=== PATIENT | female | born 1960 | race Caucasian/White ===

== ENCOUNTER 2017-07-22 05:31 | Inpatient (IN) | payer OTHER ==
[2017-07-18 13:25] LABS: BASOPHILS 0.3 %; BASOPHILS ABSOLUTE 0.02 10/3/uL (0.0-0.16); EOSINOPHILS ABSOLUTE 0.06 10/3/uL (0.0-0.53); IMMATURE GRANULOCYTES 0.2 %; IMMATURE GRANULOCYTES ABSOLUTE 0.01 10/3/uL (0.0-0.11); LYMPHOCYTES 40.7 %; LYMPHOCYTES ABSOLUTE 2.41 10/3/uL (0.67-4.30); MEAN CORPUS HGB CONC 34.3 g/dL (32.0-36.0); MEAN CORPUSCULAR HEMOGLOB 33.7 pg (26.0-34.0); MEAN CORPUSCULAR VOLUME 98.3 fL (80-100); MEAN PLATELET VOLUME 9.8 fL (9.2-13.0); MONOCYTES 4.7 %; MONOCYTES ABSOLUTE 0.28 10/3/uL (0.21-1.20); NEUTROPHILS 53.1 %; NEUTROPHILS ABSOLUTE 3.14 10/3/uL (2.02-8.40); PLATELET COUNT 240 10/3/uL (150-400); RBC DISTRIBUTION WIDTH 13.4 % (12.0-16.0); RED CELL COUNT 3.56 10/6/uL (4.0-5.6); WHITE BLOOD CELLS 5.9 10/3/uL (4.5-10.5)
[2017-07-18 13:28] LABS: MANUAL DIFF NO %
[2017-07-18 13:32] LABS: PROTIME (NOT ORD) 12.9 SEC (12.0-14.5)
[2017-07-18 13:33] LABS: PARTIAL THROMBO TIME 28.9 SEC (22.5-37.2)
[2017-07-18 13:40] LABS: A/G RATIO 1.3 (0.7-1.9); ALBUMIN 4.4 G/DL (3.5-5.0); ALKALINE PHOSPHATASE 77 U/L (45-117); BUN (BLOOD UREA NITROGEN) 16 MG/DL (6-23); CHLORIDE, SERUM 104 MMOL/L (96-112); CO2 (CARBON DIOXIDE) 28 MMOL/L (24-34); CREATININE 0.78 MG/DL (0.55-1.02); GFR AFRICAN AMERICAN 96 ML/MIN (>=60); GFR NON AFRICAN AMERICAN 83 ML/MIN (>=60); GLOBULIN 3.4 G/DL (2.5-4.1); GLUCOSE, SERUM 87 MG/DL (60-99); POTASSIUM, SERUM 4.3 MMOL/L (3.5-5.3); SGOT(AST) 13 U/L (5-40); SGPT(ALT) 18 U/L (5-65); SODIUM, SERUM 141 MMOL/L (135-148); TOTAL BILIRUBIN 0.4 MG/DL (0-1.2); TOTAL PROTEIN 7.8 G/DL (6.0-8.5)
[~2017-07-22] VITALS: Ht 170.2 cm; Wt 48.3 kg
--- NOTE | ~2017-07-22 | PREOPHP ---
PreOp History and Physical [address] [place]. [address] NAME: JOSEPHINE ROJAS : 56 STATUS : PRE IN PAT#: [id number] AGE: 57 ADM/REG DATE : MR#: [id number] REPORT SERV DATE: 07/21/17 DICTATED BY: REESE MEDINA III DATE: 07/15/17 REPORT STATUS : Draft TRANSCRIBED BY: MODL DATE: 07/15/17 HISTORY OF PRESENT ILLNESS: This 57-year-old female comes to the operating room for Whipple procedure or pancreaticoduodenectomy, for biopsy proven cancer of the head of the pancreas. The patient complains of a one-month history of severe abdominal pain. The pain is primarily in the epigastric area and migrated through to the back. The pain has been associated with nausea and anorexia. The patient recently had an ultrasound, which showed a mass in the head of the pancreas. EUS was performed showing a mass in the head of the pancreas. Biopsy confirmed this to be adenocarcinoma. There was no evidence for metastatic disease on EUS. The patient comes to the operating room now for pancreaticoduodenectomy or Whipple procedure. PAST MEDICAL HISTORY: Essentially unremarkable. MEDICATIONS: Omeprazole and tramadol. PAST SURGICAL HISTORY: None. FAMILY HISTORY: Positive for colon cancer. SOCIAL HISTORY: No history of alcohol use. The patient has a history of regular tobacco abuse. ALLERGIES: NONE. MEDICATIONS: Omeprazole and tramadol. REVIEW OF SYSTEMS: The patient complains of fatigue and weight loss. Her 14-point review of systems is, otherwise, unremarkable. PHYSICAL EXAMINATION: GENERAL: This is a female, in no acute distress. She is alert and oriented x3. VITAL SIGNS: Blood pressure 123/80, pulse 104, and temp 98. HEENT: Unremarkable. Cranial nerves II through XII are normal. LUNGS: Clear. CARDIAC: Normal. ABDOMEN: Soft and nontender. LABORATORY DATA: Abdominal ultrasound shows a 3.3 cm mass in the pancreatic head with pancreatic ductal dilatation. EUS shows a similar finding with biopsy confirming this to be adenocarcinoma. On EUS, the portal vein is clear of involvement. ASSESSMENT: 1. A 57-year-old female with biopsy proven cancer of the head of the pancreas. 2. Tobacco abuse. PreOp History and Physical [address] [place]. [address] NAME: JOSEPHINE ROJAS : 56 STATUS : PRE IN PAT#: [id number] AGE: 57 ADM/REG DATE : MR#: [id number] REPORT SERV DATE: 07/21/17 DICTATED BY: REESE MEDINA III DATE: 07/15/17 REPORT STATUS : Draft TRANSCRIBED BY: IRISH DATE: 07/15/17 PLAN: The patient comes to the operating room now for Whipple procedure or pancreaticoduodenectomy. The option of nonsurgical treatment with palliative chemotherapy and radiation therapy have been offered to the patient, but declined. The fact that this is a major operation with high risk for morbidity and mortality has been explained. The procedure risks, benefits, and alternatives, including but not limited to the risk for bleeding, infection, enterotomy, injury to any abdominal structure, postop small bowel obstruction, ileus, incisional hernia, dehiscence, anastomotic leak involving any one or all three of the anastomoses including the biliary anastomosis, the gastric anastomosis, or pancreatic anastomosis, pancreatitis, pancreatic fistula formation, obstruction of any one or all three of the anastomoses including the biliary, pancreatic, or anastomosis, malfunction or leakage around the J-tube, gastroparesis or gastric outlet obstruction, prolonged ventilator dependency, and unforeseen complications including deep venous thrombosis, pulmonary embolus, myocardial infarction, stroke, pneumonia, and , have been fully and completely explained to the patient and family at length prior to surgery. The fact that this is a major operation with high risk for morbidity and mortality has been explained. The risk of major morbidity requiring reoperation at least 20% has been explained as well as the risk of mortality of 5% to 10%. The fact that without surgery, this malignancy cannot be cured has been explained. The patient questions have been answered. She fully and completely understands the risks and agrees to surgery as planned. RHJ/IRISH Reese Medina III, M.D. / [id number] CC: Ernie Virk III, MD
--- NOTE | ~2017-07-22 | OP ---
Record Of Operation [facility] [address] [address] NAME: JOSEPHINE ROJAS : 56 STATUS : ADM IN PAT#: [id number] AGE: 57 ADM/REG DATE : 07/22/17 MR#: [id number] REPORT SERV DATE: 07/23/17 DICTATED BY: REESE MEDINA III DATE: 07/23/17 REPORT STATUS : Draft TRANSCRIBED BY: MODStephen DATE: 07/23/17 DATE OF PROCEDURE: 07/22/2017 ADDENDUM: It should be noted that the marking clips were placed along the positive margin of the portal vein. There was more tumor inferior to this. In fact, a large body of the tumor was slightly inferior to where these clips were placed. HENRI/IRISH Reese Medina III, M.D. / [id number] CC: Ernie Virk III
--- NOTE | ~2017-07-22 | OP ---
Record Of Operation [facility] [address] [place]. [address] NAME: JOSEPHINE ROJSA : 56 STATUS : ADM IN [facility]#: [id number] AGE: 57 ADM/REG DATE : 07/22/17 MR#: [id number] REPORT SERV DATE: 07/23/17 DICTATED BY: REESE MEDINA III DATE: 07/22/17 REPORT STATUS : Draft TRANSCRIBED BY: MODL DATE: 07/22/17 DATE OF PROCEDURE: 07/22/2017 PREOPERATIVE DIAGNOSIS: Biopsy-proven adenocarcinoma of the head of the pancreas. POSTOPERATIVE DIAGNOSIS: Biopsy-proven adenocarcinoma of the head of the pancreas with invasion into the supraduodenal portal vein. PROCEDURE: Laparotomy, cholecystectomy, biopsy of portal lymph node, mobilization of pancreas. ANESTHESIA: General with intubation. COMPLICATIONS: None. ESTIMATED BLOOD LOSS: 20 mL. SPECIMENS: Gallbladder with cystic lymph node and periportal lymph node. DRAINS: Landon-Stafford in abdominal cavity, Alexx in subcutaneous tissue. LAP AND SPONGE COUNT: Correct x3. BRIEF HISTORY: This 57-year-old female, presented with biopsy-proven invasive adenocarcinoma of the head of the pancreas. Her workup including CT scan and the EUS showed a fairly large mass in the head of the pancreas. This appeared to be resectable with no evidence of metastatic disease on preoperative imaging studies. It was felt that laparotomy was attempted. Whipple procedure was indicated. This procedure, the risks, benefits, and alternatives, including but not limited to the risk for bleeding, infection, enterotomy, injury to abdominal structure, common bile duct injury, bile leak, retained common bile stone, ileus, gastroparesis, gastric outlet obstruction, leakage of any one or all three of the anastomoses including the gastric, biliary, or pancreatic anastomosis, obstruction of any one or all three of the anastomosis including the biliary, gastric, or pancreatic anastomosis, pancreatic fistula formation, pancreatitis, and unforeseen complications including deep venous thrombosis, pulmonary embolus, myocardial infarction, stroke, pneumonia, and , were fully explained to the patient and family at length prior to surgery. The fact this was a major operation with risk for major morbidity and mortality has been explained. The expected length of recovery was explained. The risk of morbidity of at least 20%, requiring reoperation, as well as the risk of mortality about 5% was explained. The patient and family had questions which were answered. They fully understood the risks and agreed to surgery as planned. FINDINGS: The patient had a large mass along the superior aspect of the head of the pancreas. This mass was directly invading the supraduodenal portal vein. The invasion was along the lateral aspect of the portal vein and posteriorly. This involved about a 1 cm to 1.5 cm length of the portal vein which was not resectable. Considerable amount of time was Record Of Operation [address] [address] NAME: JOSEPHINE ROJAS : 56 STATUS : ADM IN PAT#: [id number] AGE: 57 ADM/REG DATE : 07/22/17 MR#: [id number] REPORT SERV DATE: 07/23/17 DICTATED BY: REESE MEDINA III DATE: 07/22/17 REPORT STATUS : Draft TRANSCRIBED BY: IRISH DATE: 07/22/17 spent, trying to dissect the tumor away from the portal vein, though we could not do so safely. It was my judgment that would not be safe to proceed safely with resection because of involvement of the portal vein. It was my judgment that reconstruction of portal vein would involve significant risks to the patient in terms of portal vein thrombosis and this was not indicated and would likely not change her outcome in terms of curative procedure. The patient's cystic duct lymph node and travis hepatis lymph nodes were negative on frozen section and there was no evidence for disease outside of the primary tumor in the portal region and no evidence for metastatic disease. Again, though the tumor clearly invaded the posterior supraduodenal portal vein, making the tumor unresectable. The area was marked with clips for postop radiation therapy. DESCRIPTION OF PROCEDURE: After being appropriately identified and after discussing the risks of surgery with the patient and family again in the preoperative area, the patient was taken to the operating room and placed in supine position on the operating room table. General anesthesia was administered and she was intubated without difficulty. A Xie catheter and NG tube were inserted. The abdomen was prepped and draped sterilely in the usual fashion. After an appropriate "time-out" per JCAHO standards, a right subcostal incision was made about 2 cm below the costal margin, continuing over the left subcostal region for about 2-3 cm beyond the midline. The incision was continued through the subcutaneous tissue. Hemostasis was controlled with cautery. The incision was continued through the fascia. The abdominal cavity was entered. The abdomen was explored. There was no evidence for carcinomatosis or peritoneal implants. The liver appeared to be normal. There was a large obvious mass involving the head of the pancreas. The patient's anatomy was somewhat unusual and the majority of the pancreas was superior to the lesser curve of the stomach. The tumor was along the superior border of the head of the pancreas. Using sharp dissection, Jony maneuver was performed by dividing the peritoneal reflection to the 2nd, 3rd portion of the duodenal, mobilized the duodenum medially as far as possible. The duodenum was mobilized well beyond the inferior vena cava. We dissected along the inferior border of the pancreas using sharp dissection and identified the superior mesenteric vein as it dove beneath the pancreas posteriorly. Using sharp dissection, we dissected along the superior border of the pancreas. There was a very large lymph node in the portal region which was resected. This was sent for frozen section and interpreted as being benign. We identified the portal vein in the suprapancreatic region. We were able to make a plane posterior to pancreas above the portal vein which was clear. The body of the pancreas was normal. The tumor involved primarily in the superior aspect of the pancreas near the common bile duct. This tumor was very large and very firm. It appeared to extend up to the common bile duct with the junction of the common bile duct with the cystic duct appeared to be clear and soft with no obvious tumor. The portal vein however was clearly adherent to the tumor. We elected to remove the gallbladder so as to better define the common bile duct. Using sharp dissection, gallbladder dissected from the liver in a retrograde fashion. The cystic artery and cystic duct were individually isolated, ligated, and divided. They were doubly ligated. There was a lymph node along the distal aspect of the cystic duct and therefore the gallbladder and the cystic duct with this lymph node was sent to pathology and it was interpreted as being benign. Record Of Operation [address] [address] NAME: JOSEPHINE ROJAS : 56 STATUS : ADM IN PAT#: [id number] AGE: 57 ADM/REG DATE : 07/22/17 MR#: [id number] REPORT SERV DATE: 07/23/17 DICTATED BY: REESE MEDINA III DATE: 07/22/17 REPORT STATUS : Draft TRANSCRIBED BY: MODL DATE: 07/22/17 Using sharp dissection, the common bile duct was dissected away from the portal vein. A vessel loop was placed around it. It should be noted vessel loop was also placed around the pancreas over the portal vein. Both of these structures were clearly dividable. However, the tumor appeared to invade the portal vein along the lateral wall of the portal vein and the posterior wall of the portal vein. We identified the gastroduodenal artery as it dissected beneath the duodenum. It was isolated, ligated, and divided. We identified clearly the common hepatic artery which was carefully dissected away and protected. In this way, we were able to fully and completely expose the portal vein in the portal region. Great care was taken to carefully dissect it along the medial border which was free. However, there was about 1.5 to perhaps 2 cm of the portal vein which was densely adherent to the tumor along the lateral wall. Using sharp dissection, we were able to free up the majority of the lateral wall of the portal vein from the tumor. However, the tumor was clearly invading the posterior wall of the portal vein. This was not able to be freed with a clear margin. At this time, considerable amount of effort and time was spent trying to decide whether to remove the tumor from the portal vein and whether this would be a value to the patient in terms of her long-term prognosis. A long segment again perhaps 1.5 cm to 2 cm of the portal vein was involved posteriorly. It was my judgment that would not be safe to proceed with attempting to remove or dissect the tumor from the portal vein in this region. It was my concern that this could result in life-threatening hemorrhage, in that it would not be possible to resect the tumor with clear margins, and therefore would not provide the patient with a curative resection. For this reason, the area was marked with clips for postop radiation therapy. The area was irrigated copiously with saline. Hemostasis was assured. A Landon-Stafford drain was brought through a separate stab wound and placed in the right upper quadrant. The fascia was closed with a running looped #1 PDS suture in two layers. The subcutaneous tissue was closed with a running 3-0 chromic suture over a Moira drain which was brought through the lateral aspect of the incision. The skin was closed with running subcuticular 4 0 Monocryl stitch. It should be noted we elected not to perform a gastric or biliary bypass as the patient had no evidence for biliary or gastric obstruction at this time. Dressings were applied. Anesthesia was reversed. The patient was taken to the recovery room in stable condition. She tolerated the procedure well. Family was informed results of surgery. The patient will remain in the hospital for postoperative care. HENRI/IRISH Reese Medina III, M.D. / [id number] CC: Ernie Virk III, MD
[~2017-07-22 05:31] MED LIST: ENDOCET1 TA1 PO; PRILO PO; ULTRAM50 PO
[2017-07-23 05:05] LABS: BASOPHILS 0 %; EOSINOPHILS 0.1 %; EOSINOPHILS ABSOLUTE 0.01 10/3/uL (0.0-0.53); HEMOGLOBIN 10.6 g/dL (12.0-16.0); IMMATURE GRANULOCYTES 0.1 %; IMMATURE GRANULOCYTES ABSOLUTE 0.01 10/3/uL (0.0-0.11); LYMPHOCYTES 20.1 %; LYMPHOCYTES ABSOLUTE 1.47 10/3/uL (0.67-4.30); MEAN CORPUS HGB CONC 34.3 g/dL (32.0-36.0); MEAN CORPUSCULAR HEMOGLOB 34.3 pg (26.0-34.0); MEAN PLATELET VOLUME 9.4 fL (9.2-13.0); MONOCYTES 7.1 %; MONOCYTES ABSOLUTE 0.52 10/3/uL (0.21-1.20); NEUTROPHILS 72.6 %; NEUTROPHILS ABSOLUTE 5.31 10/3/uL (2.02-8.40); PLATELET COUNT 181 10/3/uL (150-400); RBC DISTRIBUTION WIDTH 13.8 % (12.0-16.0); RED CELL COUNT 3.09 10/6/uL (4.0-5.6); WHITE BLOOD CELLS 7.3 10/3/uL (4.5-10.5)
[2017-07-23 05:06] LABS: HEMATOCRIT 30.9 % (36.0-48.0); MANUAL DIFF NO %
[2017-07-23 05:20] LABS: CALCIUM, SERUM 9.4 MG/DL (8.5-10.4); CHLORIDE, SERUM 106 MMOL/L (96-112); CO2 (CARBON DIOXIDE) 26 MMOL/L (24-34); CREATININE 0.84 MG/DL (0.55-1.02); GFR AFRICAN AMERICAN 88 ML/MIN (>=60); GFR NON AFRICAN AMERICAN 76 ML/MIN (>=60); POTASSIUM, SERUM 4.9 MMOL/L (3.5-5.3); SGOT(AST) 818 U/L (5-40); SGPT(ALT) 599 U/L (5-65); SODIUM, SERUM 139 MMOL/L (135-148); TOTAL PROTEIN 6.4 G/DL (6.0-8.5)
[2017-07-23 05:24] LABS: ALBUMIN 3.2 G/DL (3.5-5.0); ALKALINE PHOSPHATASE 95 U/L (45-117); BUN (BLOOD UREA NITROGEN) 12 MG/DL (6-23); GLOBULIN 3.2 G/DL (2.5-4.1); GLUCOSE, SERUM 129 MG/DL (60-99); TOTAL BILIRUBIN 1.3 MG/DL (0-1.2)
[2017-07-24 04:40] LABS: BASOPHILS 0.1 %; BASOPHILS ABSOLUTE 0.01 10/3/uL (0.0-0.16); EOSINOPHILS 1.4 %; EOSINOPHILS ABSOLUTE 0.11 10/3/uL (0.0-0.53); HEMATOCRIT 29.2 % (36.0-48.0); HEMOGLOBIN 9.7 g/dL (12.0-16.0); IMMATURE GRANULOCYTES 0.2 %; IMMATURE GRANULOCYTES ABSOLUTE 0.02 10/3/uL (0.0-0.11); LYMPHOCYTES 18.8 %; LYMPHOCYTES ABSOLUTE 1.51 10/3/uL (0.67-4.30); MEAN CORPUS HGB CONC 33.2 g/dL (32.0-36.0); MEAN CORPUSCULAR HEMOGLOB 33.4 pg (26.0-34.0); MEAN CORPUSCULAR VOLUME 100.7 fL (80-100); MEAN PLATELET VOLUME 9.7 fL (9.2-13.0); MONOCYTES 7.7 %; MONOCYTES ABSOLUTE 0.62 10/3/uL (0.21-1.20); NEUTROPHILS 71.8 %; NEUTROPHILS ABSOLUTE 5.76 10/3/uL (2.02-8.40); PLATELET COUNT 165 10/3/uL (150-400); RBC DISTRIBUTION WIDTH 13.7 % (12.0-16.0)
[2017-07-24 04:41] LABS: MANUAL DIFF NO %
[2017-07-24 04:58] LABS: CA-19-9 11.8 U/ML (< 37.0); CALCIUM, SERUM 9.4 MG/DL (8.5-10.4); CHLORIDE, SERUM 107 MMOL/L (96-112); CO2 (CARBON DIOXIDE) 26 MMOL/L (24-34); CREATININE 0.58 MG/DL (0.55-1.02); GFR AFRICAN AMERICAN 117 ML/MIN (>=60); GFR NON AFRICAN AMERICAN 101 ML/MIN (>=60); POTASSIUM, SERUM 4.8 MMOL/L (3.5-5.3); SODIUM, SERUM 138 MMOL/L (135-148)
[2017-07-24 04:59] LABS: BUN (BLOOD UREA NITROGEN) 7 MG/DL (6-23); GLUCOSE, SERUM 103 MG/DL (60-99)
[2017-07-25 05:21] LABS: BASOPHILS 0.1 %; BASOPHILS ABSOLUTE 0.01 10/3/uL (0.0-0.16); EOSINOPHILS 2.1 %; EOSINOPHILS ABSOLUTE 0.16 10/3/uL (0.0-0.53); HEMATOCRIT 30.7 % (36.0-48.0); HEMOGLOBIN 10.3 g/dL (12.0-16.0); IMMATURE GRANULOCYTES 0.1 %; IMMATURE GRANULOCYTES ABSOLUTE 0.01 10/3/uL (0.0-0.11); LYMPHOCYTES 23.6 %; LYMPHOCYTES ABSOLUTE 1.79 10/3/uL (0.67-4.30); MANUAL DIFF NO %; MEAN CORPUS HGB CONC 33.6 g/dL (32.0-36.0); MEAN CORPUSCULAR HEMOGLOB 33.7 pg (26.0-34.0); MEAN CORPUSCULAR VOLUME 100.3 fL (80-100); MEAN PLATELET VOLUME 9.5 fL (9.2-13.0); MONOCYTES 7.8 %; MONOCYTES ABSOLUTE 0.59 10/3/uL (0.21-1.20); NEUTROPHILS 66.3 %; NEUTROPHILS ABSOLUTE 5.04 10/3/uL (2.02-8.40); PLATELET COUNT 190 10/3/uL (150-400); RBC DISTRIBUTION WIDTH 13.7 % (12.0-16.0); RED CELL COUNT 3.06 10/6/uL (4.0-5.6); WHITE BLOOD CELLS 7.6 10/3/uL (4.5-10.5)
[2017-07-25 05:26] LABS: BUN (BLOOD UREA NITROGEN) 9 MG/DL (6-23); CALCIUM, SERUM 9.4 MG/DL (8.5-10.4); CHLORIDE, SERUM 101 MMOL/L (96-112); CO2 (CARBON DIOXIDE) 30 MMOL/L (24-34); CREATININE 0.62 MG/DL (0.55-1.02); GFR AFRICAN AMERICAN 114 ML/MIN (>=60); GFR NON AFRICAN AMERICAN 99 ML/MIN (>=60); GLUCOSE, SERUM 101 MG/DL (60-99); POTASSIUM, SERUM 4.7 MMOL/L (3.5-5.3); SODIUM, SERUM 136 MMOL/L (135-148)
== END 2017-07-25 16:20 | disposition home or self-care (01) | DRG 415 ==
LOC: ENRESERVTM → ENRESERV → ENRESERVDT → SDC/OF 05:31 → 5SO 05:31
PROVIDERS: Surgery
PROC: 0FT40ZZ Resection of Gallbladder, Open Approach (ICD-10-PCS; principal; 2017-07-22 07:45)
PROC: 07BB0ZX Excision of Mesenteric Lymphatic, Open Approach, Diagnostic (ICD-10-PCS; 2017-07-22 07:45)
DX: C25.0 Malignant neoplasm of head of pancreas (principal); Z68.1 Body mass index [BMI] 19.9 or less, adult; E44.1 Mild protein-calorie malnutrition; K21.9 Gastro-esophageal reflux disease without esophagitis; F17.210 Nicotine dependence, cigarettes, uncomplicated; M19.90 Unspecified osteoarthritis, unspecified site
CPT/HCPCS: 36415; 71010; 71020; 80048; 80053; 82962; 85025; 85610; 85730; 86301; 86850; 86900; 86901; 88304; 88305; 88331; 93005; 97161-GP; A9270-GY; C1751; C1769; J0330; J0690; J2250; J2270; J2370; J2405; J2710; J3010; P9045